=== PATIENT | male | born 2000 | race Caucasian/White ===

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

== ENCOUNTER 2022-11-02 08:15 | Emergency (ER) | payer MEDICAID ==
[~2022-11-02] VITALS: Ht 180 cm; Wt 115.5 kg
--- NOTE | 2022-11-02 09:09 | ED EENT ---
History of Present Illness General Chief Complaint: Oral/Throat Problems Stated Complaint: SORE THROAT/LEFT EYE RED/SWOLLEN Nursing Triage Note: PT STATES THROAT PAIN FOR 3 DAYS AND LT EYE PAIN THAT STARTED YESTERDAY Source: patient Exam Limitations: no limitations History of Present Illness Date Seen by Provider: Nov 02, 2022 Time Seen by Provider: 09:00 Initial Comments Patient is a 22-year-old male who presents to the emergency department today with a chief complaint of sore throat for 4 days, red runny eye for couple of days. He complains of a little "blurry vision" from the left eye, itching and drainage. He was seen at [facility] and swabbed for strep 3 days ago he was told it was negative however the throat continues to be very sore with painful swallowing. He had fevers chills a couple of days ago. No nausea vomiting, no cough no earache. He is COVID vaccinated without boosters. No flu shot. He is not nauseous or vomiting, not having diarrhea. No urinary complaints. No rashes. All other review of systems reviewed and negative except as stated Timing/Duration: gradual Severity: moderate Location: eye (L), throat Prearrival Treatment: no prearrival treatment Associated Symptoms: No cough, No ear drainage; fever, nasal congestion/drainage, sore throat Allergies and Home Medications Allergies Coded Allergies: NKANo Known Allergies (Unverified Allergy, Mild, 05/08/09) Patient Home Medication List Home Medication List Reviewed: Yes Naproxen (Naprosyn) 500 Mg Tablet, 500 MG PO BID Prescribed by: GLENNY CHU on 08/06/172019 Review of Systems Review of Systems Constitutional: see HPI Eyes: Blurred Vision, Drainage, Pain Ears: No Symptoms Reported Nose: congestion Mouth: no symptoms reported Throat: pain, painful swallowing Respiratory: no symptoms reported Cardiovascular: no symptoms reported Gastrointestinal: no symptoms reported Musculoskeletal: no symptoms reported Skin: no symptoms reported All Other Systems Reviewed Negative Unless Noted: Yes Past Ugkwlyc-Ycwotx-Isgtok Hx Patient Social History Tobacco Use?: No Substance use?: No Alcohol Use?: No Immunizations Up To Date Tetanus Booster (TDap): Less than 5yrs PED Vaccines UTD: Yes First/Initial COVID19 Vaccinat: YES 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 Seasonal Allergies Seasonal Allergies: No Past Medical History Surgery/Hospitalization HX: DENIES MED HX Surgeries: No Respiratory: No Cardiac: No Neurological: No Reproductive Disorders: No Sexually Transmitted Disease: No Genitourinary: No Gastrointestinal: No Musculoskeletal: No Endocrine: No HEENT: No Cancer: No Psychosocial: Yes ADD/ADHD, Depression Integumentary: No Blood Disorders: No Family Medical History No Pertinent Family Hx Physical Exam Vital Signs Vital Signs - First Documented 11/02/22 08:21 Temp 36.6 Pulse 107 Resp 18 B/P (MAP) 129/92 (104) Pulse Ox 96 O2 Delivery Room Air Height, Weight, BMI Height: 5'11.00" Weight: 209lbs. oz. 94.536909rd; 35.00 BMI Method:Stated General Appearance: WD/WN, no apparent distress Eyes: left eye conjunctival inflammation, left eye lid inflammation, left eye other (clear drainage; conjunctival erythema/inflammation) Ears: left ear TM normal; bilateral ear auricle normal Nose: normal inspection Mouth/Throat: tonsillar exudate (left), other (pharyngeal erythema) Neck: supple, normal inspection Cardiovascular: regular rate, rhythm Respiratory: lungs clear, normal breath sounds, no respiratory distress, no accessory muscle use Neurologic/Psychiatric: alert, normal mood/affect, oriented x 3 Skin: normal color, warm/dry Progress/Results/Core Measures Results/Orders Lab Results Laboratory Tests Test 11/02/22 09:15 Range/Units Group A Streptococcus Screen NEGATIVE NEGATIVE My Orders Orders - PARVIN RODAS MD Rapid Strep A Screen (11/02/22 09:05) Ibuprofen Tablet (Motrin Tablet) (11/02/22 09:15) Medications Given in ED Current Medications Medications Dose Ordered Sig/Harry Route Start Time Stop Time Status Last Admin Dose Admin Ibuprofen 600 mg ONCE ONCE PO 11/02/22 09:15 11/02/22 09:16 DC 11/02/22 09:16 600 MG Vital Signs/I&O 11/02/22 11/02/22 08:21 09:16 Temp 36.6 36.6 Pulse 107 Resp 18 B/P (MAP) 129/92 (104) Pulse Ox 96 O2 Delivery Room Air Blood Pressure Mean: 104 Progress Progress Note : Time: 09:38 Progress Note Group A strep screen remains negative. We will treat as a viral syndrome. Eyedrops for conjunctivitis on the left. Supportive care. Patient is agreeable. All questions are sought and answered Departure Impression Primary Impression: Viral pharyngitis Additional Impression: Conjunctivitis Qualified Codes: H10.32 - Unspecified acute conjunctivitis, left eye Disposition: 01 HOME, SELF-CARE Condition: Stable Departure-Patient Inst. Decision time for Depature: 09:39 Referrals: [facility] (PCP/Family) Primary Care Physician Patient Instructions: Conjunctivitis ([facility]) ED, Viral Pharyngitis ([facility]) Add. Discharge Instructions: Drink plenty of fluids to stay well-hydrated. Warm salt water gargles will help with throat pain. Continue ibuprofen, 3 tablets which is 600 mg every 6 hours with food as needed for pain. Use the eyedrops as directed. You will need to use these for 1 week. Return to the emergency room for any new, concerning or emergent complaints. Scripts Erythromycin Base (Erythromycin Opthalmic Ointment) 5 Mg/Gram (0.5 %) Oint...g. 0 OP Q4H for 5 Days, #1 EA 11/03 inch Prov: PARVIN RODAS MD 11/02/22 Work/School Note: Work Release Form Date Seen in the Emergency Department: Nov 02, 2022 Return to Work: Nov 05, 2022 PARVIN RODAS MD Nov 02, 2022 09:09
[2022-11-02] MEDS ORDERED: IBUPROFEN 600 MG (MOTRIN) TAB PO ONE (09:15)
[2022-11-02] MEDS ORDERED: ERYT1OIN6 OP (09:39)
[2022-11-02 09:45] VITALS: BP 129/92
== END 2022-11-02 09:44 | disposition home or self-care (01) ==
LOC: EDUNIT# 08:15 → ER 08:18
DX: J02.9 Acute pharyngitis, unspecified (principal); H10.9 Unspecified conjunctivitis; Z28.311 Partially vaccinated for COVID-19
CPT/HCPCS: 87430; 99283